=== PATIENT | female | born 1955 | race Two or more races ===

== ENCOUNTER 2017-06-06 09:38 | Outpatient (CLI) | payer OTHER | END 2017-06-06 09:58 | disposition home or self-care (01) | LOC: NUCLEAR 09:38 | DX: I82.402 Acute embolism and thrombosis of unspecified deep veins of left lower extremity (principal) ==

== ENCOUNTER 2017-06-19 11:06 | Outpatient (CLI) | payer OTHER | END 2017-06-19 11:30 | disposition home or self-care (01) | LOC: SONOGRAMA 11:06 | DX: M25.572 Pain in left ankle and joints of left foot (principal) ==

== ENCOUNTER 2017-08-26 13:35 | Outpatient (CLI) | payer OTHER | END 2017-08-26 14:04 | disposition home or self-care (01) | LOC: LAB 13:35 | DX: D50.9 Iron deficiency anemia, unspecified (principal); R82.79 Other abnormal findings on microbiological examination of urine; E03.9 Hypothyroidism, unspecified; E78.2 Mixed hyperlipidemia; I11.9 Hypertensive heart disease without heart failure; E56.8 Deficiency of other vitamins; N39.0 Urinary tract infection, site not specified; Z12.11 Encounter for screening for malignant neoplasm of colon; R19.5 Other fecal abnormalities; E55.9 Vitamin D deficiency, unspecified; N19 Unspecified kidney failure; E11.9 Type 2 diabetes mellitus without complications; R80.9 Proteinuria, unspecified; K92.1 Melena; D69.6 Thrombocytopenia, unspecified; N32.9 Bladder disorder, unspecified; E53.8 Deficiency of other specified B group vitamins; D64.9 Anemia, unspecified; B65.9 Schistosomiasis, unspecified ==

== ENCOUNTER → 2017-09-02 12:07 | Outpatient (CLI) | payer OTHER | END | disposition home or self-care (01) | LOC: LAB 12:07 | DX: D50.9 Iron deficiency anemia, unspecified (principal); E03.9 Hypothyroidism, unspecified; E78.2 Mixed hyperlipidemia; I11.9 Hypertensive heart disease without heart failure; E56.8 Deficiency of other vitamins; N39.0 Urinary tract infection, site not specified; Z12.11 Encounter for screening for malignant neoplasm of colon; R19.5 Other fecal abnormalities; E55.9 Vitamin D deficiency, unspecified; N19 Unspecified kidney failure; E11.9 Type 2 diabetes mellitus without complications; R80.9 Proteinuria, unspecified; K92.1 Melena; C18.9 Malignant neoplasm of colon, unspecified ==

== ENCOUNTER → 2017-12-04 15:42 | Outpatient (CLI) | payer OTHER | END | disposition home or self-care (01) | LOC: LAB 15:42 | DX: E03.8 Other specified hypothyroidism (principal); N39.0 Urinary tract infection, site not specified ==

== ENCOUNTER 2018-01-27 09:38 | Outpatient (CLI) | payer OTHER | END 2018-01-27 09:52 | disposition home or self-care (01) | LOC: LAB 09:38 | DX: I11.9 Hypertensive heart disease without heart failure (principal); E11.9 Type 2 diabetes mellitus without complications; E78.2 Mixed hyperlipidemia; D69.6 Thrombocytopenia, unspecified; E03.8 Other specified hypothyroidism ==

== ENCOUNTER → 2018-01-29 07:42 | Outpatient (CLI) | payer OTHER | END | disposition home or self-care (01) | LOC: LAB 07:42 | DX: N39.0 Urinary tract infection, site not specified (principal) ==

== ENCOUNTER 2018-02-27 14:38 | Outpatient (CLI) | payer OTHER | END 2018-02-27 16:43 | disposition home or self-care (01) | LOC: SONOGRAMA 14:38 | DX: N39.0 Urinary tract infection, site not specified (principal); N20.0 Calculus of kidney ==

== ENCOUNTER 2018-03-10 16:26 | Outpatient (CLI) | payer OTHER | END 2018-03-10 16:33 | disposition home or self-care (01) | LOC: LAB 16:26 | DX: N39.0 Urinary tract infection, site not specified (principal) ==

== ENCOUNTER → 2018-03-13 | Outpatient (CLI) | payer OTHER | END | disposition home or self-care (01) | LOC: MAMO-SONO 15:24 | DX: Z12.31 Encounter for screening mammogram for malignant neoplasm of breast (principal); N60.11 Diffuse cystic mastopathy of right breast; N60.12 Diffuse cystic mastopathy of left breast ==

== ENCOUNTER 2018-04-30 15:25 | Outpatient (CLI) | payer OTHER | END 2018-04-30 15:29 | disposition home or self-care (01) | LOC: LAB 15:25 | DX: N30.00 Acute cystitis without hematuria (principal) ==

== ENCOUNTER 2018-06-11 12:08 | Outpatient (CLI) | payer OTHER | END 2018-06-11 12:20 | disposition home or self-care (01) | LOC: LAB 12:08 | DX: E04.2 Nontoxic multinodular goiter (principal); E03.8 Other specified hypothyroidism; Z68.22 Body mass index [BMI] 22.0-22.9, adult; E55.9 Vitamin D deficiency, unspecified ==

== ENCOUNTER 2018-06-11 12:24 | Outpatient (CLI) | payer OTHER | END 2018-06-11 12:25 | disposition home or self-care (01) | LOC: SONOGRAMA 12:24 → MAMO-SONO 13:15 | DX: E04.2 Nontoxic multinodular goiter (principal); E03.2 Hypothyroidism due to medicaments and other exogenous substances; Z68.22 Body mass index [BMI] 22.0-22.9, adult; E55.9 Vitamin D deficiency, unspecified ==

== ENCOUNTER 2018-08-11 12:39 | Outpatient (CLI) | payer OTHER | END 2018-08-11 12:47 | disposition home or self-care (01) | LOC: LAB 12:39 | DX: N30.00 Acute cystitis without hematuria (principal) ==

== ENCOUNTER → 2018-08-14 11:32 | Outpatient (CLI) | payer OTHER | END | disposition home or self-care (01) | LOC: LAB 11:32 | DX: D50.8 Other iron deficiency anemias (principal); E03.8 Other specified hypothyroidism; E78.2 Mixed hyperlipidemia; I11.9 Hypertensive heart disease without heart failure; E56.8 Deficiency of other vitamins; N39.0 Urinary tract infection, site not specified; Z12.11 Encounter for screening for malignant neoplasm of colon; R19.5 Other fecal abnormalities; E55.9 Vitamin D deficiency, unspecified; N19 Unspecified kidney failure; E11.9 Type 2 diabetes mellitus without complications; R80.8 Other proteinuria; C18.0 Malignant neoplasm of cecum; K92.1 Melena ==

== ENCOUNTER 2018-09-25 11:17 | Outpatient (CLI) | payer OTHER | END 2018-09-25 11:23 | disposition home or self-care (01) | LOC: LAB 11:17 | DX: N30.00 Acute cystitis without hematuria (principal) ==

== ENCOUNTER 2018-10-27 14:09 | Outpatient (CLI) | payer OTHER | END 2018-10-27 14:54 | disposition home or self-care (01) | LOC: SONOGRAMA 14:09 → MAMO-SONO 14:15 → SONOGRAMA 14:54 | DX: R10.2 Pelvic and perineal pain (principal) ==

== ENCOUNTER 2018-10-30 10:59 | Outpatient (CLI) | payer OTHER | END 2018-10-30 11:06 | disposition home or self-care (01) | LOC: LAB 10:59 | DX: N30.00 Acute cystitis without hematuria (principal) ==

== ENCOUNTER 2018-12-17 10:45 | Outpatient (CLI) | payer OTHER | END 2018-12-17 10:50 | disposition home or self-care (01) | LOC: LAB 10:45 | DX: E03.8 Other specified hypothyroidism (principal) ==

== ENCOUNTER 2019-01-10 10:09 | Outpatient (CLI) | payer OTHER | END 2019-01-10 10:20 | disposition home or self-care (01) | LOC: LAB 10:09 | DX: D50.8 Other iron deficiency anemias (principal); E03.8 Other specified hypothyroidism; E78.2 Mixed hyperlipidemia; I11.9 Hypertensive heart disease without heart failure; E56.8 Deficiency of other vitamins; N39.0 Urinary tract infection, site not specified; Z12.11 Encounter for screening for malignant neoplasm of colon; R19.5 Other fecal abnormalities; E55.9 Vitamin D deficiency, unspecified; N19 Unspecified kidney failure; E11.9 Type 2 diabetes mellitus without complications; R80.8 Other proteinuria; C18.9 Malignant neoplasm of colon, unspecified ==

== ENCOUNTER 2019-05-07 07:58 | Outpatient (CLI) | payer OTHER | END 2019-05-07 08:06 | disposition home or self-care (01) | LOC: LAB 07:58 | DX: E03.8 Other specified hypothyroidism (principal); E78.2 Mixed hyperlipidemia; I11.9 Hypertensive heart disease without heart failure; E56.8 Deficiency of other vitamins; N39.0 Urinary tract infection, site not specified; Z12.11 Encounter for screening for malignant neoplasm of colon; E55.9 Vitamin D deficiency, unspecified; N19 Unspecified kidney failure; E11.9 Type 2 diabetes mellitus without complications; R80.8 Other proteinuria; C18.0 Malignant neoplasm of cecum; K92.1 Melena ==

== ENCOUNTER 2019-05-21 16:34 | Outpatient (CLI) | payer OTHER | END 2019-05-21 16:39 | disposition home or self-care (01) | LOC: LAB 16:34 | DX: Z00.00 Encounter for general adult medical examination without abnormal findings (principal) ==

== ENCOUNTER 2019-05-26 09:28 | Outpatient (CLI) | payer OTHER | END 2019-05-26 09:59 | disposition home or self-care (01) | LOC: NUCLEAR 09:28 | DX: I11.9 Hypertensive heart disease without heart failure (principal) ==

== ENCOUNTER 2019-11-14 09:24 | Outpatient (CLI) | payer OTHER | END 2019-11-14 09:33 | disposition home or self-care (01) | LOC: LAB 09:24 | PROVIDERS: ATTEND Internal Medicine Geriatric Medicine | DX: D50.8 Other iron deficiency anemias (principal); E03.8 Other specified hypothyroidism; E78.2 Mixed hyperlipidemia; I11.9 Hypertensive heart disease without heart failure; E56.8 Deficiency of other vitamins; N39.0 Urinary tract infection, site not specified; Z12.11 Encounter for screening for malignant neoplasm of colon; E55.9 Vitamin D deficiency, unspecified; N19 Unspecified kidney failure; E11.9 Type 2 diabetes mellitus without complications; R80.8 Other proteinuria; C18.0 Malignant neoplasm of cecum; K92.1 Melena ==

== ENCOUNTER 2019-12-10 12:36 | Outpatient (CLI) | payer OTHER | END 2019-12-10 12:47 | disposition home or self-care (01) | LOC: SONOGRAMA 12:36 | PROVIDERS: ATTEND Internal Medicine Endocrinology, Diabetes & Metabolism | DX: E04.2 Nontoxic multinodular goiter (principal); E03.8 Other specified hypothyroidism; Z68.24 Body mass index [BMI] 24.0-24.9, adult; E55.9 Vitamin D deficiency, unspecified ==

== ENCOUNTER → 2019-12-10 13:48 | Outpatient (CLI) | payer OTHER | END | disposition home or self-care (01) | LOC: LAB 13:48 | PROVIDERS: ATTEND Internal Medicine Endocrinology, Diabetes & Metabolism | DX: E04.2 Nontoxic multinodular goiter (principal); E03.8 Other specified hypothyroidism; Z68.24 Body mass index [BMI] 24.0-24.9, adult; E55.9 Vitamin D deficiency, unspecified; N39.0 Urinary tract infection, site not specified ==

== ENCOUNTER 2019-12-11 09:32 | Outpatient (CLI) | payer OTHER | END 2019-12-11 09:49 | disposition home or self-care (01) | LOC: TOM 09:32 | PROVIDERS: ATTEND Internal Medicine | DX: K57.30 Diverticulosis of large intestine without perforation or abscess without bleeding (principal) ==

== ENCOUNTER 2020-01-15 14:36 | Outpatient (CLI) | payer OTHER | END 2020-01-15 14:41 | disposition home or self-care (01) | LOC: LAB 14:36 | PROVIDERS: ATTEND Internal Medicine Geriatric Medicine | DX: N39.0 Urinary tract infection, site not specified (principal) ==

== ENCOUNTER → 2020-02-12 11:05 | Outpatient (CLI) | payer OTHER | END | disposition home or self-care (01) | LOC: LAB 11:05 | PROVIDERS: ATTEND Internal Medicine Hematology & Oncology | DX: D50.8 Other iron deficiency anemias (principal); R79.89 Other specified abnormal findings of blood chemistry; I10 Essential (primary) hypertension; R74.02 Elevation of levels of lactic acid dehydrogenase [LDH]; K76.89 Other specified diseases of liver; D55.0 Anemia due to glucose-6-phosphate dehydrogenase [G6PD] deficiency; D51.1 Vitamin B12 deficiency anemia due to selective vitamin B12 malabsorption with proteinuria; D51.0 Vitamin B12 deficiency anemia due to intrinsic factor deficiency; E03.8 Other specified hypothyroidism; E06.3 Autoimmune thyroiditis; D69.49 Other primary thrombocytopenia; K57.30 Diverticulosis of large intestine without perforation or abscess without bleeding; K42.9 Umbilical hernia without obstruction or gangrene; R94.5 Abnormal results of liver function studies ==

== ENCOUNTER → 2020-03-01 12:28 | Outpatient (CLI) | payer OTHER | END | disposition home or self-care (01) | LOC: LAB 12:28 | PROVIDERS: ATTEND Obstetrics & Gynecology Gynecology | DX: N39.0 Urinary tract infection, site not specified (principal) ==

== ENCOUNTER 2020-06-09 16:23 | Outpatient (CLI) | payer OTHER | END 2020-06-09 16:31 | disposition home or self-care (01) | LOC: LAB 16:23 | PROVIDERS: ATTEND Obstetrics & Gynecology Gynecology | DX: E03.8 Other specified hypothyroidism (principal); N39.0 Urinary tract infection, site not specified ==

== ENCOUNTER 2020-06-16 07:26 | Outpatient (CLI) | payer OTHER | END 2020-06-16 07:42 | disposition home or self-care (01) | LOC: LAB 07:26 | PROVIDERS: ATTEND Internal Medicine Hematology & Oncology | DX: D69.49 Other primary thrombocytopenia (principal); D51.8 Other vitamin B12 deficiency anemias; D51.3 Other dietary vitamin B12 deficiency anemia; I10 Essential (primary) hypertension; E03.8 Other specified hypothyroidism; K57.30 Diverticulosis of large intestine without perforation or abscess without bleeding; K42.9 Umbilical hernia without obstruction or gangrene; R94.5 Abnormal results of liver function studies ==

== ENCOUNTER 2020-08-02 10:14 | Outpatient (CLI) | payer OTHER | END 2020-08-02 10:19 | disposition home or self-care (01) | LOC: LAB 10:14 | PROVIDERS: ATTEND Internal Medicine Cardiovascular Disease | DX: E11.9 Type 2 diabetes mellitus without complications (principal); E03.8 Other specified hypothyroidism ==

== ENCOUNTER 2020-10-05 16:29 | Outpatient (CLI) | payer OTHER | END 2020-10-05 16:33 | disposition home or self-care (01) | LOC: LAB 16:29 | PROVIDERS: ATTEND Internal Medicine Geriatric Medicine | DX: N39.0 Urinary tract infection, site not specified (principal) ==

== ENCOUNTER 2021-02-18 10:26 | Outpatient (CLI) | payer OTHER | END 2021-02-18 10:27 | disposition home or self-care (01) | LOC: LAB 10:26 | PROVIDERS: ATTEND Internal Medicine Hematology & Oncology | DX: D50.8 Other iron deficiency anemias (principal); R79.89 Other specified abnormal findings of blood chemistry; I10 Essential (primary) hypertension; R74.02 Elevation of levels of lactic acid dehydrogenase [LDH]; K76.89 Other specified diseases of liver; D51.8 Other vitamin B12 deficiency anemias; E55.9 Vitamin D deficiency, unspecified; D69.8 Other specified hemorrhagic conditions; D51.3 Other dietary vitamin B12 deficiency anemia; E03.8 Other specified hypothyroidism; K57.30 Diverticulosis of large intestine without perforation or abscess without bleeding; K42.9 Umbilical hernia without obstruction or gangrene; R94.5 Abnormal results of liver function studies ==

== ENCOUNTER → 2021-03-23 11:22 | Outpatient (CLI) | payer OTHER | END | disposition home or self-care (01) | LOC: LAB 11:22 | PROVIDERS: ATTEND Internal Medicine Hematology & Oncology | DX: D50.8 Other iron deficiency anemias (principal); E03.8 Other specified hypothyroidism; E78.2 Mixed hyperlipidemia; I11.9 Hypertensive heart disease without heart failure; E56.8 Deficiency of other vitamins; N39.0 Urinary tract infection, site not specified; Z12.11 Encounter for screening for malignant neoplasm of colon; R19.5 Other fecal abnormalities; E55.9 Vitamin D deficiency, unspecified; N19 Unspecified kidney failure; E11.9 Type 2 diabetes mellitus without complications; D69.49 Other primary thrombocytopenia; D51.8 Other vitamin B12 deficiency anemias; D51.3 Other dietary vitamin B12 deficiency anemia; I10 Essential (primary) hypertension; K57.30 Diverticulosis of large intestine without perforation or abscess without bleeding; K42.9 Umbilical hernia without obstruction or gangrene; R94.5 Abnormal results of liver function studies ==

== ENCOUNTER 2021-07-26 06:15 | Outpatient (CLI) | payer OTHER | END 2021-07-26 06:16 | disposition home or self-care (01) | LOC: LAB 06:15 | PROVIDERS: ATTEND Internal Medicine Cardiovascular Disease | DX: I10 Essential (primary) hypertension (principal); E08.10 Diabetes mellitus due to underlying condition with ketoacidosis without coma ==

== ENCOUNTER 2021-08-17 09:26 | Outpatient (CLI) | payer OTHER | END 2021-08-17 09:32 | disposition home or self-care (01) | LOC: LAB 09:26 | PROVIDERS: ATTEND Internal Medicine Geriatric Medicine | DX: Z12.11 Encounter for screening for malignant neoplasm of colon (principal); D50.9 Iron deficiency anemia, unspecified; E03.9 Hypothyroidism, unspecified; E78.2 Mixed hyperlipidemia; I11.9 Hypertensive heart disease without heart failure; E56.8 Deficiency of other vitamins; N39.0 Urinary tract infection, site not specified; R19.5 Other fecal abnormalities; E55.9 Vitamin D deficiency, unspecified; N19 Unspecified kidney failure; E11.9 Type 2 diabetes mellitus without complications ==

== ENCOUNTER 2021-10-26 10:51 | Outpatient (CLI) | payer OTHER | END 2021-10-26 10:52 | disposition home or self-care (01) | LOC: LAB 10:51 | PROVIDERS: ATTEND Internal Medicine Hematology & Oncology | DX: D50.8 Other iron deficiency anemias (principal); R79.9 Abnormal finding of blood chemistry, unspecified; I10 Essential (primary) hypertension; R74.02 Elevation of levels of lactic acid dehydrogenase [LDH]; K76.89 Other specified diseases of liver; E55.9 Vitamin D deficiency, unspecified; R97.0 Elevated carcinoembryonic antigen [CEA]; R97.8 Other abnormal tumor markers; D69.6 Thrombocytopenia, unspecified; D51.8 Other vitamin B12 deficiency anemias; D51.3 Other dietary vitamin B12 deficiency anemia; E03.8 Other specified hypothyroidism; K57.30 Diverticulosis of large intestine without perforation or abscess without bleeding; K42.9 Umbilical hernia without obstruction or gangrene; R94.5 Abnormal results of liver function studies; E78.00 Pure hypercholesterolemia, unspecified; E03.9 Hypothyroidism, unspecified ==

== ENCOUNTER 2021-11-16 13:27 | Outpatient (CLI) | payer OTHER | END 2021-11-16 13:31 | disposition home or self-care (01) | LOC: LAB 13:27 | PROVIDERS: ATTEND Internal Medicine Hematology & Oncology | DX: U07.1 COVID-19 (principal); B34.1 Enterovirus infection, unspecified ==

== ENCOUNTER 2021-11-17 07:17 | Outpatient (CLI) | payer OTHER | END 2021-11-17 07:19 | disposition home or self-care (01) | LOC: NUCLEAR 07:17 | PROVIDERS: ATTEND Internal Medicine Cardiovascular Disease | DX: R07.89 Other chest pain (principal) | CPT/HCPCS: 78452; 93017; A9500 ==

== ENCOUNTER 2021-12-15 14:26 | Outpatient (CLI) | payer OTHER | END 2021-12-15 14:35 | disposition home or self-care (01) | LOC: RAD 14:26 | PROVIDERS: ATTEND Internal Medicine Geriatric Medicine | DX: M77.12 Lateral epicondylitis, left elbow (principal) ==

== ENCOUNTER 2022-03-12 08:54 | Outpatient (CLI) | payer OTHER | END 2022-03-12 15:51 | disposition home or self-care (01) | LOC: LAB 08:54 | PROVIDERS: ATTEND Internal Medicine Geriatric Medicine | DX: D50.9 Iron deficiency anemia, unspecified (principal); E03.9 Hypothyroidism, unspecified; E78.2 Mixed hyperlipidemia; I11.9 Hypertensive heart disease without heart failure; E56.8 Deficiency of other vitamins; N39.0 Urinary tract infection, site not specified; Z12.11 Encounter for screening for malignant neoplasm of colon; R19.5 Other fecal abnormalities; E55.9 Vitamin D deficiency, unspecified; E11.9 Type 2 diabetes mellitus without complications ==

== ENCOUNTER 2022-05-04 10:09 | Outpatient (CLI) | payer OTHER | END 2022-05-04 23:00 | disposition home or self-care (01) | LOC: LAB 10:09 | PROVIDERS: ATTEND Internal Medicine Hematology & Oncology | DX: M06.9 Rheumatoid arthritis, unspecified (principal); M32.9 Systemic lupus erythematosus, unspecified; D69.6 Thrombocytopenia, unspecified; D51.8 Other vitamin B12 deficiency anemias; D51.3 Other dietary vitamin B12 deficiency anemia; I10 Essential (primary) hypertension; E03.8 Other specified hypothyroidism; K57.30 Diverticulosis of large intestine without perforation or abscess without bleeding; R94.5 Abnormal results of liver function studies; K42.9 Umbilical hernia without obstruction or gangrene ==

== ENCOUNTER → 2022-09-18 | Emergency (ER) | payer OTHER ==
[~2022-09-18] VITALS: Ht 162.6 cm; Wt 61.7 kg
[~2022-09-18] MED LIST: LEVOXYL125 MCG PO; LISINOPRIL20 MG PO; METOPROLOL SUCC50 MG PO
== END | disposition home or self-care (01) ==
LOC: ER 13:54
DX: M54.50 Low back pain, unspecified (principal); I10 Essential (primary) hypertension

== ENCOUNTER 2022-09-26 13:03 | Outpatient (CLI) | payer OTHER | END 2022-09-26 13:20 | disposition home or self-care (01) | LOC: SONOGRAMA 13:03 | PROVIDERS: ATTEND Internal Medicine Hematology & Oncology | DX: E04.2 Nontoxic multinodular goiter (principal) ==

== ENCOUNTER 2023-03-06 07:38 | Outpatient (CLI) | payer OTHER ==
[2023-03-06 09:02] LABS: HEMATOCRIT 41.4 % (36.0-45.00); HEMOGLOBIN 14.3 g/dL (12.0-15.00); MEAN CELL VOLUME 106.6 fL (80.00-100.00); MEAN CORPUSCULAR HEMOGLOBIN 36.8 pg (27.00-32.0); MEAN CORPUSCULAR HGB CONC 34.5 g/dl (32.0-36.0); RED BLOOD COUNT 3.88 M/uL (4.00-6.00); RED CELL DISTRIBUTION WIDTH 14.9 % (11.5-14.5)
[2023-03-06 09:03] LABS: PLATELET COUNT 120 K/uL (150-450)
[2023-03-06 09:30] LABS: PH,URINE 6.5 (5.0-8.0); URINE APPEARANCE Clear; URINE BILIRRUBIN Negative (NEGATIVE); URINE BLOOD Negative; URINE COLOR Yellow; URINE GLUCOSE Negative (NEGATIVE); URINE LEUKOCYTE Small; URINE NITRATE Negative; URINE PROTEIN Negative (NEGATIVE); URINE UROBILINOGEN 0.2 E.U./dl
[2023-03-06 09:35] LABS: URINE BACTERIA 298.6 uL (0.0-1933); URINE EPITHELIAL CELLS 8.1 uL (0.0-38.8); URINE RBC 2.4 uL (0.0-20.8); URINE WBC 116.5 uL (0.0-23.2)
[2023-03-06 09:58] LABS: ALBUMIN 3.9 gm/dL (3.4-5.0); BILIRUBIN TOTAL 0.74 mg/dL (0.3-1.2); CALCIUM 9.3 mg/dL (8.5-10.1); CHOL HDL RATIO 3.2 (0-5.0); CREATININE SERUM 0.85 mg/dL (0.55-1.02); GFR 66.91; GLOBULINA 3.5 G/DL (2.4-3.5); POTASSIUM 4.24 mEq/L (3.5-5.1); T4 FREE 1.19 NG/ML (0.76-1.46); TOTAL PROTEIN 7.4 gm/dL (6.4-8.2); TSH 1.8 uIU/mL (0.358-3.74)
[2023-03-06 12:48] LABS: FOLIC ACID > 20.00 ng/ml (4.78-20); VITAMIN D3 25 HYDROXY 84.92 ng/ml (30-120)
[2023-03-07 08:10] LABS: ANTI THYROID PEROXIDASE < 9 IU/mL (0-34)
[2023-03-07 10:43] LABS: MANUAL PLATELET COUNT 288
[2023-03-07 10:45] LABS: PLATELET ESTIMATE NORMAL (NORMAL)
[2023-03-08 14:07] LABS: PARIETAL CELL ANTIBODIES 12.2 Units (0.0-20.0)
[2023-03-10 18:05] LABS: Glycopro Negative (Negative); HL Negative (Negative); la Negative (Negative); lb Negative (Negative); llb Negative (Negative)
[2023-03-11 20:06] LABS: INTRINSIC FACTOR BLOCKING AB 1.2 AU/mL (0.0-1.1)
== END 2023-03-06 07:40 | disposition home or self-care (01) ==
LOC: LAB 07:38
PROVIDERS: ATTEND Internal Medicine Hematology & Oncology
DX: D50.8 Other iron deficiency anemias (principal); R79.9 Abnormal finding of blood chemistry, unspecified; R74.02 Elevation of levels of lactic acid dehydrogenase [LDH]; K76.89 Other specified diseases of liver; D69.6 Thrombocytopenia, unspecified; D51.8 Other vitamin B12 deficiency anemias; D51.1 Vitamin B12 deficiency anemia due to selective vitamin B12 malabsorption with proteinuria; D51.0 Vitamin B12 deficiency anemia due to intrinsic factor deficiency; E03.8 Other specified hypothyroidism; E06.3 Autoimmune thyroiditis; D51.3 Other dietary vitamin B12 deficiency anemia; K57.30 Diverticulosis of large intestine without perforation or abscess without bleeding; K42.9 Umbilical hernia without obstruction or gangrene; R94.5 Abnormal results of liver function studies; K75.9 Inflammatory liver disease, unspecified; D50.9 Iron deficiency anemia, unspecified; E03.9 Hypothyroidism, unspecified; E78.2 Mixed hyperlipidemia; I11.9 Hypertensive heart disease without heart failure; N39.0 Urinary tract infection, site not specified; Z12.11 Encounter for screening for malignant neoplasm of colon; R19.5 Other fecal abnormalities; E55.9 Vitamin D deficiency, unspecified; N19 Unspecified kidney failure; E11.9 Type 2 diabetes mellitus without complications; D69.9 Hemorrhagic condition, unspecified; D53.1 Other megaloblastic anemias, not elsewhere classified; D42.9 Neoplasm of uncertain behavior of meninges, unspecified

== ENCOUNTER 2023-04-22 09:42 | Outpatient (CLI) | payer OTHER | END 2023-04-22 10:00 | disposition home or self-care (01) | LOC: SONOGRAMA 09:42 | PROVIDERS: ATTEND Pathology Anatomic Pathology & Clinical Pathology | DX: D34 Benign neoplasm of thyroid gland (principal); E04.2 Nontoxic multinodular goiter ==

== ENCOUNTER 2023-06-26 08:15 | Outpatient (CLI) | payer OTHER | END 2023-06-26 08:16 | disposition home or self-care (01) | LOC: NUCLEAR 08:15 | PROVIDERS: ATTEND Internal Medicine Geriatric Medicine | DX: I87.2 Venous insufficiency (chronic) (peripheral) (principal) ==

== ENCOUNTER 2023-11-04 12:12 | Outpatient (CLI) | payer OTHER | END 2023-11-04 12:18 | disposition home or self-care (01) | LOC: RAD 12:12 | PROVIDERS: ATTEND Orthopaedic Surgery Adult Reconstructive Orthopaedic Surgery | DX: M16.11 Unilateral primary osteoarthritis, right hip (principal); M17.11 Unilateral primary osteoarthritis, right knee; M17.12 Unilateral primary osteoarthritis, left knee ==

== ENCOUNTER → 2024-02-21 14:39 | Outpatient (CLI) | payer OTHER | END | disposition home or self-care (01) | LOC: RAD 14:39 | PROVIDERS: ATTEND Orthopaedic Surgery Adult Reconstructive Orthopaedic Surgery | DX: I11.9 Hypertensive heart disease without heart failure (principal) ==

== ENCOUNTER 2025-02-15 09:42 | Outpatient (CLI) | payer OTHER | END 2025-02-15 09:47 | disposition home or self-care (01) | LOC: SONOGRAMA 09:42 | PROVIDERS: ATTEND Internal Medicine Geriatric Medicine | DX: M50.10 Cervical disc disorder with radiculopathy, unspecified cervical region (principal); M75.41 Impingement syndrome of right shoulder; M75.111 Incomplete rotator cuff tear or rupture of right shoulder, not specified as traumatic ==